=== PATIENT | female | born 1975 | race Caucasian/White ===

== ENCOUNTER 2020-01-21 21:00 | Emergency (ER) | payer OTHER ==
--- NOTE | 2020-01-21 21:37 | ER Document Report ---
ED Medical Screen (RME) - General Chief Complaint: Irregular Pulse Stated Complaint: IRREGULAR PULSE,HEAD PAIN, NECK PAIN, EYE PRESSURE Time Seen by Provider: 01/21/20 21:16 Primary Care Provider: YEISON BREWER MD [Primary Care Provider] - Follow up as needed Mode of Arrival: Ambulatory Information source: Patient Notes: 44-year-old female presents the ED for a headache that is been getting progressively worse for the last 4 days. She states that 6 days ago she was taken a picture and stood up and hit her head on a garage door. She states she did not have any loss of consciousness headache or nausea or vomiting at that time. She states that 4 days ago when her headache started she started getting swelling to the eyes and when she would lie down she would have a rapid heartbeat. She states she also has a thyroid nodule that has not been evaluated in over a year. [facility] either or Thursday and had labs drawn and she was started on erythromycin for a ear infection because of the headache. He states that the doctor thought she might have an ear infection so he put on erythromycin. She states the headaches keeps getting worse and is not getting better with Tylenol or Motrin. She states that she went to she states that the doctor told her that he was going put in a requisition for a ultrasound of the thyroid but she has not been called for that yet. He did tell her to come to the emergency room to get a head CT because they did not have a way to get a stat CT. she states that the doctor told her he was worried that there might be fluid on the brain from the head injury so she should come to the emergency room to get a CT. A head CT has been ordered per patient's insistent request. Patient is alert oriented answering questions appropriately. I have greeted and performed a rapid initial assessment of this patient. A comprehensive ED assessment and evaluation of the patient, analysis of test results and completion of medical decision making process will be conducted by an additional ED providers. TRAVEL OUTSIDE OF THE [place] IN LAST 30 DAYS: No - Related Data Allergies/Adverse Reactions: No Known Allergies Allergy (Verified 08/21/15 10:15) Home Medications: Synthroid Past Medical History - Social History Frequency of alcohol use: Social - Past Medical History Cardiac Medical History: Denies: Hx Coronary Artery Disease, Hx Heart Attack, Hx Hypertension Pulmonary Medical History: Denies: Hx Asthma, Hx Bronchitis, Hx COPD, Hx Pneumonia Neurological Medical History: Denies: Hx Cerebrovascular Accident, Hx Seizures GI Medical History: Denies: Hx Hepatitis, Hx Hiatal Hernia, Hx Ulcer Musculoskeltal Medical History: Denies Hx Arthritis Infectious Medical History: Denies: Hx Hepatitis Past Surgical History: Denies: Hx Hysterectomy, Hx Mastectomy, Hx Open Heart Surgery, Hx Pacemaker - Immunizations Hx Diphtheria, Pertussis, Tetanus Vaccination: No Physical Exam - Vital signs Vitals: Temp Pulse Resp BP Pulse Ox 98.1 F 63 16 133/82 H 99 01/21/20 21:11 01/21/20 21:11 01/21/20 21:11 01/21/20 21:11 01/21/20 21:11 Course - Vital Signs Vital signs: Temp Pulse Resp BP Pulse Ox 98.1 F 63 16 133/82 H 99 01/21/20 21:11 01/21/20 21:11 01/21/20 21:11 01/21/20 21:11 01/21/20 21:11 Doctor's Discharge - Discharge Referrals: YEISON BREWER MD [Primary Care Provider] - Follow up as needed
--- NOTE | 2020-01-21 22:06 | RADIOLOGY REPORT (SQ) ---
EXAM DESCRIPTION: CT HEAD WITHOUT IV CONTRAST COMPLETED DATE/TME: 01/21/2020 21:35 CLINICAL HISTORY: 44 years, Female, Headache post injury 6 days ago COMPARISON: None. TECHNIQUE: 186 Images stored on PACS. All CT scanners at this facility use dose modulation, iterative reconstruction, and/or weight based dosing when appropriate to reduce radiation dose to as low as reasonably achievable (ALARA). [facility]: Dose Right [facility]: CareDose [facility]: Dose Right [facility]: Teradose 4D [facility]: [employer] LIMITATIONS: None. FINDINGS: The globes are intact. The paranasal sinuses and mastoid air cells are well aerated. No displaced or depressed skull fracture. No intra or extra-axial hemorrhage. CT is limited for evaluation of acute infarct. No CT evidence for large or territorial acute infarct. No mass. No midline shift IMPRESSION: Unremarkable unenhanced CT brain TECHNICAL DOCUMENTATION: Quality ID # [id number]: Final reports with documentation of one or more dose reduction techniques (e.g., Automated exposure control, adjustment of the mA and/or kV according to patient size, use of iterative reconstruction technique) copyright 2011 [employer]- All Rights Reserved
[2020-01-22 00:11] VITALS: BP 131/76
--- NOTE | 2020-01-22 00:16 | ER Document Report ---
HPI - HPI Time Seen by Provider: 01/21/20 21:16 Pain Level: 3 Notes: 44-year-old female patient presenting to the emergency department with request for head CT. Patient reports 6 days ago she abruptly sat up and hit her head on her garage door. She denies any loss of consciousness, denies any nausea or vomiting. She states she went to her primary care provider at [facility] who told her to come to the emergency department for a CT as they were concerned for fluid on her brain. - ROS Systems Reviewed and Negative: Yes All other systems reviewed and negative - NEURO Neurology: REPORTS: Headache Past Medical History - General Information source: Patient - Social History Smoking Status: Never Smoker Frequency of alcohol use: Social Family History: None Patient has homicidal ideation: No - Medical History Medical History: Other - elevated TSH/thyroid nodule - Past Medical History Cardiac Medical History: Denies: Hx Coronary Artery Disease, Hx Heart Attack, Hx Hypertension Pulmonary Medical History: Denies: Hx Asthma, Hx Bronchitis, Hx COPD, Hx Pneumonia Neurological Medical History: Denies: Hx Cerebrovascular Accident, Hx Seizures GI Medical History: Denies: Hx Hepatitis, Hx Hiatal Hernia, Hx Ulcer Musculoskeletal Medical History: Denies Hx Arthritis Infectious Medical History: Denies: Hx Hepatitis Past Surgical History: Denies: Hx Hysterectomy, Hx Mastectomy, Hx Open Heart Surgery, Hx Pacemaker - Immunizations Hx Diphtheria, Pertussis, Tetanus Vaccination: No Vertical Provider Document - CONSTITUTIONAL Notes: PHYSICAL EXAMINATION: GENERAL: Well-appearing, well-nourished and in no acute distress. HEAD: Atraumatic, normocephalic. EYES: Pupils equal round extraocular movements intact, conjunctiva are normal. ENT: Nares patent NECK: Normal range of motion LUNGS: No respiratory distress Musculoskeletal: Normal range of motion NEUROLOGICAL: Face symmetric. Extraocular motions intact. Pupils are 2 mm and equally reactive. Normal speech, normal gait. 5 out of 5 strength in both the distal and proximal upper and lower extremities bilaterally. Sensation is grossly intact throughout. PSYCH: Normal mood, normal affect. SKIN: Warm, Dry, normal turgor, no rashes or lesions noted. - INFECTION CONTROL TRAVEL OUTSIDE OF THE [place] IN LAST 30 DAYS: No Course - Re-evaluation Re-evalutation: I was asked to see this patient at the end of my shift as the patient was in the lobby, her CAT scan had resulted and she was requesting copies of her CAT scan and medication for her headache. I was present during patient's initial triage with DOMINGO Kothari so it was already familiar with the patient's situation. Patient CT as ordered by triage provider has returned, it is negative for any acute findings. Likely mild concussion. Patient's neurological exam is unremarkable. Patient does have pain along the right lateral neck that extends up behind her ear and into her head. We will try a muscle relaxer for this. Patient does not seem very satisfied with the negative CT she does not understand why she continues to have headaches. I explained to her all the symptoms of concussion and that she can have persistent headaches, a copy of her CT report was given to her for her primary care provider's review. - Vital Signs Vital signs: Temp Pulse Resp BP Pulse Ox 98.1 F 58 L 16 131/76 H 100 01/22/20 00:10 01/22/20 00:10 01/22/20 00:10 01/22/20 00:10 01/22/20 00:10 Discharge - Discharge Clinical Impression: Head injury Qualifiers: Encounter type: initial encounter Qualified Code(s): S09.90XA - Unspecified injury of head, initial encounter Condition: Stable Disposition: HOME, SELF-CARE Additional Instructions: You have likely sustained a contusion (bruise) to your head. If you had a CT scan done, it did not show any evidence of serious injury or bleeding. Symptoms to expect from a concussion include nausea, mild to moderate headache, difficulty concentrating or sleeping, and mild lightheadedness. These symptoms should improve over the next few days to weeks. Return to the emergency department or follow-up with your primary care doctor if your symptoms are not improving over this time. Signs of a more serious head injury include vomiting, severe headache, excessive sleepiness or confusion, and weakness or numbness in your face, arms or legs. Return immediately to the Emergency Department if you experience any of these more concerning symptoms. Rest, avoid strenuous physical or mental activity, and avoid activities that could potentially result in another head injury until all your symptoms from this head injury are completely resolved for at least 2-3 weeks. If you participate in sports, get cleared by your doctor or field sales trainer before returning to play. You may take ibuprofen or acetaminophen over the counter according to label instructions for mild headache or scalp soreness. Prescriptions: Methocarbamol [Robaxin 750 mg Tablet] 750 mg PO Q6HP PRN #20 tablet PRN Reason: Referrals: YEISON BREWER MD [Primary Care Provider] - Follow up as needed
[2020-01-22] MEDS ORDERED: HYDROCODONE/ACETAMINOPHEN 5-325 MG TABLET PO ONE (00:24)
[2020-01-22] MEDS ORDERED: METHOCARBAMOL 750 MG TABLET PO ONE (00:24)
--- NOTE | 2020-01-22 08:33 | EKG REPORT ---
SEVERITY:- BORDERLINE ECG - SINUS RHYTHM BORDERLINE T WAVE ABNORMALITIES : Confirmed by: Abel Chawla MD 22-Jan-2020 08:33:05
== END 2020-01-22 00:45 | disposition home or self-care (01) ==
LOC: ER 21:00
DX: S09.90XA Unspecified injury of head, initial encounter (principal); W22.8XXA Striking against or struck by other objects, initial encounter; Y92.009 Unspecified place in unspecified non-institutional (private) residence as the place of occurrence of the external cause
CPT/HCPCS: 93005; 99284; 70450; 93010; J3490